=== PATIENT | female | born 1940 | race Caucasian/White ===

== ENCOUNTER 2019-06-24 09:15 | Emergency (ER) | payer OTHER ==
[~2019-06-24] VITALS: Ht 165.1 cm; Wt 59.0 kg
[~2019-06-24 09:15] MED LIST: ALEVE220 M1 PO; AMLODIPINE BESY10 MG PO; LOSARTAN POTAS100 MG PO
[2019-06-24] MEDS ORDERED: NORCO 5-325 TA1 EAC1 PO (11:18)
[2019-06-24] MEDS ORDERED: ROXICODONE5 M2 PO (11:24)
[2019-06-24 11:43] VITALS: BP 158/75
[2019-06-28] MEDS ORDERED: VITAMIN C1000 MG PO (10:14)
[2019-06-28] MEDS ORDERED: LIPITOR 20 MG T20 M1 PO (10:14)
[2019-06-28] MEDS ORDERED: GLUCOPHAGE1000 MG PO (10:14)
[2019-06-28] MEDS ORDERED: IBUPROFEN 200200 M1 PO (10:15)
[2019-06-28] MEDS ORDERED: VITAMIN D325 MC1 PO (10:15)
== END 2019-06-24 11:39 | disposition home or self-care (01) ==
LOC: ER 09:15
DX: S52.572A Other intraarticular fracture of lower end of left radius, initial encounter for closed fracture (principal); S52.692A Other fracture of lower end of left ulna, initial encounter for closed fracture; I10 Essential (primary) hypertension; E78.00 Pure hypercholesterolemia, unspecified; Z90.710 Acquired absence of both cervix and uterus; Z98.890 Other specified postprocedural states; Z88.5 Allergy status to narcotic agent; Z88.8 Allergy status to other drugs, medicaments and biological substances; W00.0XXA Fall on same level due to ice and snow, initial encounter; Y92.89 Other specified places as the place of occurrence of the external cause; Y93.89 Activity, other specified; Y99.8 Other external cause status

== ENCOUNTER → 2019-06-30 | Day surgery (SDC) | payer OTHER ==
[~2019-06-30] VITALS: Ht 165.1 cm; Wt 59.0 kg
[~2019-06-30] MED LIST changes: +GLUCOPHAGE1000 MG PO; +IBUPROFEN 200200 M1 PO; +LIPITOR 20 MG T20 M1 PO; +NORCO 5-325 TA1 EAC1 PO; +ROXICODONE5 M2 PO; +VITAMIN C1000 MG PO; +VITAMIN D325 MC1 PO
[2019-06-30 13:31] VITALS: BP 176/69
[2019-06-30 17:36] VITALS: BP 176/69
--- NOTE | 2019-07-07 14:28 | O ---
[facility] [place] [address] OPERATIVE REPORT Name: AVI LARSON Room #: REG [facility]..#: [id number] Admission: 06/30/19 Attend Phys: Aimee Benitez, Discharge: Date of : 42 Report #: [id number] THIS REPORT FOR: cc: Erickson Pittamn,Erickson Arias,Aimee Turk MD ~ CC: Erickson Benitez DATE OF SERVICE: 06/30/2019 PREOPERATIVE DIAGNOSES: 1. Left distal radius fracture, extra-articular. 2. Left distal ulnar fracture. POSTOPERATIVE DIAGNOSIS: 1. Left distal radius fracture, extra-articular. 2. Left distal ulnar fracture. PROCEDURE PERFORMED: 1. Open reduction and internal fixation of left distal radius fracture. 2. Open reduction and internal fixation of left distal ulnar fracture. SURGEON: Aimee Benitez MD ANESTHESIA: General mask anesthesia. ESTIMATED BLOOD LOSS: Minimal. TOURNIQUET TIME: 82 minutes. COMPLICATIONS: None. CONDITION: Stable. DISPOSITION: Recovery room. INDICATIONS: The patient is a 79-year-old female with the above-mentioned diagnosis. She elects for operative treatment. The risks, benefits, alternatives and complications were discussed including but not limited to infection, damage to vessels or nerves, nonunion, malunion, hardware failure, hardware rotation, stiffness. Informed consent was obtained. The correct extremity was identified and labeled by myself after verbal confirmation of the patient as well as visual confirmation and signed informed consent. DESCRIPTION OF PROCEDURE: The patient was brought back to the operating room [facility] [address] [place] [address] OPERATIVE REPORT Name: AVI LARSON Room #: REG [facility]..#: [id number] Admission: 06/30/19 Attend Phys: Aimee Benitez, Discharge: Date of : 42 Report #: [id number] and placed on a supine position. She received preoperative antibiotics. Tourniquet was placed over padding on the patient's left upper extremity. Left upper extremity was sterilely prepped and draped in the usual fashion. Final timeout was taken to verify correct patient, operative procedure, and site, all concurred. The arm was elevated, exsanguinated and tourniquet inflated. Next, first attention was placed to the distal radius. The volar approach was done to the distal radius over the FCR tendon. Dissection was carried down through subcutaneous tissue with tenotomy scissors. The FCR tendon sheath was identified and incised. The subsheath was incised. Volar contents were retracted ulnarly and the pronator was elevated off the distal radius. Fracture site was easily identified. A [place] elevator was placed into the fracture site. It was reduced well. Each narrow and standard volar distal radius Skeletal Dynamic locking plate was placed under the bone. Fluoroscopy was brought in and the narrow one was chosen, the standard was too wide. The plate was affixed to the bone in the two with 2 distal wires and then once it was found to be in the appropriate position, a cortical screw was placed in the gliding hole. Position was checked under fluoroscopy with AP, lateral and live fluoroscopic views including a lateral tilt view multiple times to ensure against intraarticular penetration or dorsal penetration. The distal screws had good fixation volar ulnarly and so a hook plate was not required. The proximal locking shaft screws were placed. These were all found to be in good position and the fracture was very stable. The wound was thoroughly irrigated. AP, lateral and lateral tilt views all showed good position of the fracture and hardware. The hardware was not in the joint. The wound was thoroughly irrigated. Pronator quadratus was loosely reapproximated over the plate with 2-0 Vicryl suture. The skin was closed with 4-0 nylon suture. Next attention was placed to the ulna. Approximately 7 cm incision was made over the subcutaneous border of the ulna. Dissection was carried down through subcutaneous tissue with tenotomy scissors. The periosteum was incised. The fracture was reduced quite easily and a distal ulna plate from Skeletal Dynamic set was applied to the bone. It was affixed to the bone with wires in the distal holes and then once this was found to be in good position in both AP and lateral planes as well as under direct visualization, a cortical screw was placed in the gliding hole. The remaining holes were drilled, measured and appropriate size screws were placed. Careful attention placed avoiding intra-articular penetration. The fracture was very stable and had nice compression. The wound was thoroughly irrigated. Skin was closed with 4-0 nylon suture. The subcutaneous tissue was infiltrated with approximately 5 mL of 0.25% Marcaine total. She was placed in a bulky dressing and a sugar tong splint with the forearm in neutral. The DRUJ had previously been assessed. It was stable. All fingers were pink with brisk capillary refill at the completion of case after deflation of tourniquet. All sponge and needle counts were [facility] [address] [place] [address] OPERATIVE REPORT Name: AVI LARSON [id number] Admission: 06/30/19 Attend Phys: Aimee Benitez, Discharge: Date of : 42 Report #: [id number]. The patient was transferred to postoperative recovery room in stable condition. <ELECTRONICALLY SIGNED> By: Aimee Benitez MD 07/07/19 1428 1238 1302 Aimee Benitez MD /nt
--- NOTE | 2019-07-15 15:29 | EKG ---
[facility] [place] [address] ELECTROCARDIOGRAM REPORT Name: AVI LARSON Room #: REG [facility] M..#: [id number] Admission: 06/30/19 Attend Phys: Aimee Benitez, Discharge: Date of : 42 Report #: [id number] THIS REPORT FOR: cc: Erickson Pittman Steven F. DO Couchonnal, Luis F. MD ~ THIS REPORT FOR: //name// [facility] Test Date: 2019-06-30 Test Time: 12:54:17 Pat Name: AVI LARSON Department: Room: Gender: F Director Of Database Marketing: EVELINA : 1940 Requested By: Aimee Benitez Order Number: [id number] MD: Bassam Weiss Measurements Intervals [place] Rate: 90 P: 47 MA: 153 QRS: -53 QRSD: 106 T: 62 QT: 399 QTc: 489 Interpretive Statements Sinus rhythm Left anterior fascicular block Left ventricular hypertrophy Anterior Q waves, possibly due to LVH Compared to ECG 09/25/2003 14:25:51 Left ventricular hypertrophy now present Q waves now present ST (T wave) deviation no longer present Electronically Signed On 06-30-2019 16:31:03 BIAS BINDING FOLDER by Bassam Weiss [email or web address] <ELECTRONICALLY SIGNED> By: Bassam Weiss MD 06/30/19 1631 1254 1254 Bassam Weiss MD /EPI
== END | disposition home or self-care (01) ==
LOC: OR 08:10
DX: S52.502A Unspecified fracture of the lower end of left radius, initial encounter for closed fracture (principal); S52.602A Unspecified fracture of lower end of left ulna, initial encounter for closed fracture; I10 Essential (primary) hypertension; E11.9 Type 2 diabetes mellitus without complications; E78.00 Pure hypercholesterolemia, unspecified; Z98.890 Other specified postprocedural states; Z79.899 Other long term (current) drug therapy; Z90.710 Acquired absence of both cervix and uterus; Z88.8 Allergy status to other drugs, medicaments and biological substances; X58.XXXA Exposure to other specified factors, initial encounter; Y93.89 Activity, other specified; Y92.89 Other specified places as the place of occurrence of the external cause; Y99.8 Other external cause status
CPT/HCPCS: 50010; 50101; 50386; 56526; 57006; 57091; 57178; 57431; 57432; 57433; 57434; 57435; 57436; 57437; 57438; 57439; 57440; 57441; 57442; 57443; 62110; 62900; 70005

== ENCOUNTER 2021-03-31 17:33 | Emergency (ER) | payer OTHER ==
[~2021-03-31] VITALS: Ht 165.1 cm; Wt 61.2 kg
[2021-03-31 18:45] LABS: ABSOLUTE NEUTROPHILS 5.3 thou/uL (1.4-8.2); BASOPHILS 0.4 % (0.0-2.0); EOSINOPHILS 0.1 % (0.0-3.0); HEMOGLOBIN 14.2 gm/dL (12.0-15.0); MCH 30.3 pg (26.0-34.0); MCHC 33.9 g/dL (28.0-37.0); MCV 89.5 fL (80.0-100.0); MONOCYTES 11.8 % (1.0-8.0); PLATELET COUNT 136 thou/uL (150-400); POLYS 73.7 % (36.0-66.0); RBC 4.69 mil/uL (4.20-5.00); RDW 12.9 % (10.5-14.5); WBC 7.2 thou/uL (4.0-11.0)
[2021-03-31 18:48] LABS: URINE BILIRUBIN NEGATIVE (Negative); URINE BLOOD NEGATIVE (Negative); URINE CLARITY CLEAR; URINE COLOR YELLOW; URINE GLUCOSE-RANDOM* NEGATIVE (Negative); URINE KETONES NEGATIVE (Negative); URINE LEUKOCYTES-REFLEX NEGATIVE (Negative); URINE NITRITE-REFLEX NEGATIVE (Negative); URINE PROTEIN (DIPSTICK) NEGATIVE (Negative); URINE SPECIFIC GRAVITY <= 1.005 (1.005-1.035); URINE UROBILINOGEN 0.2 E.U./dl (0.2-1.0)
[2021-03-31 19:10] LABS: CALCIUM 9.1 mg/dL (8.5-10.1); CREATININE 0.7 mg/dL (0.6-1.0); POTASSIUM 3.5 mmol/L (3.5-5.1)
[2021-03-31 19:41] VITALS: BP 163/58
--- NOTE | 2021-04-01 07:40 | EKG ---
[facility] [facility] [place] [address] ELECTROCARDIOGRAM REPORT Name: AVI LARSON [id number] Admission: 03/31/21 Attend Phys: Discharge: 03/31/21 Date of : 42 Report #: [id number] [facility] ED Test Date: 2021-03-31 Test Time: 17:46:53 Pat Name: AVI LARSON Department: Room: Gender: F Senior Consumer Insights Consultant: HAILEY : 1940 Requested By: Ravi Angeles Order Number: [id number] MD: Allen Adam Measurements Intervals [place] Rate: 91 P: 42 MT: 157 QRS: -57 QRSD: 105 T: 62 QT: 393 QTc: 484 Interpretive Statements Sinus rhythm Ventricular premature complex Left anterior fascicular block Left ventricular hypertrophy Anterior Q waves, possibly due to LVH Compared to ECG 06/30/2019 12:54:17 Ventricular premature complex(es) now present Electronically Signed On 04-01-2021 7:40:25 DEPUTY CHIEF SHERIFF by Allen Adam [email or web address] <ELECTRONICALLY SIGNED> By: Allen Adam MD, [facility] 04/01/21 0740 1746 1746 Allen Adam MD, [facility] /EPI
== END 2021-03-31 19:45 | disposition home or self-care (01) ==
LOC: ER 17:33
PROVIDERS: Student in an Organized Health Care Education/Training Program
DX: U07.1 COVID-19 (principal); E78.00 Pure hypercholesterolemia, unspecified; I10 Essential (primary) hypertension; E11.9 Type 2 diabetes mellitus without complications; Z79.899 Other long term (current) drug therapy; Z90.710 Acquired absence of both cervix and uterus; Z88.5 Allergy status to narcotic agent

== ENCOUNTER 2021-04-09 13:10 | Inpatient (IN) | payer OTHER ==
[~2021-04-09] VITALS: Ht 165.1 cm; Wt 59.4 kg
[2021-04-09 13:55] VITALS: BP 153/90
[2021-04-09 14:30] LABS: ABSOLUTE NEUTROPHILS 7.9 thou/uL (1.4-8.2); BASOPHILS 0.5 % (0.0-2.0); HEMATOCRIT 37.9 % (37.0-47.0); HEMOGLOBIN 13.3 gm/dL (12.0-15.0); LYMPHOCYTES 5.7 % (24.0-44.0); MCH 30.8 pg (26.0-34.0); MCV 87.8 fL (80.0-100.0); MONOCYTES 9.3 % (1.0-8.0); PLATELET COUNT 341 thou/uL (150-400); POLYS 84.5 % (36.0-66.0); RBC 4.32 mil/uL (4.20-5.00); RDW 12.6 % (10.5-14.5); WBC 9.4 thou/uL (4.0-11.0)
[2021-04-09 14:43] LABS: CALCIUM 9.2 mg/dL (8.5-10.1); CREATININE 0.9 mg/dL (0.6-1.0); POTASSIUM 3.3 mmol/L (3.5-5.1)
[2021-04-09 17:02] VITALS: BP 130/57
--- NOTE | 2021-04-09 18:23 | NUR ---
ADMISSION NOTE: PT ADMITTED APPROX 1520. PT ALERT AND ORIENTED X 4. NO COMPLAINTS OF PAIN. PT ON 4 L NC CURRENTLY. DESATS WITH MOVEMENT. TELE IN PLACE. CONSENTS SIGNED AND IN CHART. PT USING BSC X 1 ASSIST. ORIENTED PT TO ROOM, BEDSIDE TABLE AND CALL LIGHT WITHIN REACH. PT ON ENHANCED PRECAUTIONS DUE TO COVID+. CONSULTS CALLED AND NO NEEDS AT THE MOMENT. WILL TAKE TO CT SCAN BEFORE END OF SHIFT. WILL CONTINUE TO MONITOR.
[2021-04-09 19:58] VITALS: BP 115/82
--- NOTE | 2021-04-09 23:08 | NUR ---
PT RETURNED FROM CT. PT REPORTED WANTING TO RETIRE TO SLEEP, STATING SHE WAS EXHAUSTED FROM THE DAY. IVF INTACT. LUNGS WITH CRACKLES. O2 PER NC. STEADY GAIT, SBA. BED ALARM ON. PT DECLINED HS INSULIN SCALE, REPORTED MISSED AM DOSE OF METFORMIN, FEELS HER SUGARS ARE CONTROLLED ON PO MEDS.
[2021-04-09 23:48] VITALS: BP 140/62
[2021-04-10 04:22] VITALS: BP 149/69
--- NOTE | 2021-04-10 05:47 | NUR ---
PTS PCR COVID TEST RETURNED POSITIVE. FOLLOW UP SPECIALIST UPDATED. PROVIDER UPDATED.
[2021-04-10 06:41] LABS: HEMATOCRIT 36.8 % (37.0-47.0); HEMOGLOBIN 12.6 gm/dL (12.0-15.0); MCH 30.5 pg (26.0-34.0); MCHC 34.3 g/dL (28.0-37.0); MCV 89.1 fL (80.0-100.0); RBC 4.13 mil/uL (4.20-5.00); RDW 12.8 % (10.5-14.5); WBC 7.3 thou/uL (4.0-11.0)
[2021-04-10 07:10] LABS: ALBUMIN 2.3 g/dL (3.4-5.0); CALCIUM 9.2 mg/dL (8.5-10.1); CREATININE 0.6 mg/dL (0.6-1.0); TOTAL BILIRUBIN 0.7 mg/dL (0.2-1.0); TOTAL PROTEIN 7.1 g/dL (6.4-8.2)
--- NOTE | 2021-04-10 07:18 | EKG ---
[address] [place] [address] ELECTROCARDIOGRAM REPORT Name: AVI LARSON Room #: 352- ADM IN M.R.#: [id number] Admission: 04/09/21 Attend Phys: Elena Borges MD Discharge: Date of : 41 Report #: [id number] [facility] ED Test Date: 2021-04-09 Test Time: 14:30:19 Pat Name: AVI LARSON Department: Room: [facility] Gender: F Cement Sack Breaker: JACLYN : 1940 Requested By: William Edwards Order Number: [id number] MD: Allen Adam Measurements Intervals [place] Rate: 97 P: 45 [place]: 175 QRS: -49 QRSD: 104 T: 45 QT: 375 QTc: 477 Interpretive Statements Sinus rhythm Ventricular premature complex Left anterior fascicular block Abnormal R-wave progression, late transition Left ventricular hypertrophy Compared to ECG 03/31/2021 17:46:53 Q waves no longer present Electronically Signed On 04-10-2021 7:18:13 SCRAP DROP OPERATOR by Allen Adam [email or web address] <ELECTRONICALLY SIGNED> By: Allen Adam MD, FACC 04/10/21 0718 1430 1430 Allen Adam MD, FAC /EPI
[2021-04-10 08:00] VITALS: BP 150/69
[2021-04-10 11:26] VITALS: BP 121/55
[2021-04-10 15:15] VITALS: BP 140/91
--- NOTE | 2021-04-10 15:58 | NUR ---
INITIAL ASSESSMENT: SW reviewed chart and spoke with nursing and attending physician. Pt was admitted from home due to COVID. Pt placed in Enhanced Isolation. Pt has not received a COVID vaccination. Pt with hx of HTN/DM. Pt is afebrile and on 6L of O2. Pt is on IV abx. ID consulted. SW placed call to pt's room. No answer. Per chart, pt is alert/orientated and lives at home with her grandson. Prior to admission, pt was independent with ADLs. No use of DME. There are 12 steps to enter the home from the garage. Pt's PCP is listed as Dr. Pittman. Therapy evals have been ordered. SW to follow up with pt to discuss discharge planning.
[2021-04-10 19:40] VITALS: BP 163/69
--- NOTE | 2021-04-10 19:44 | NUR ---
RN ASSUMED PT'S CARE AT 0700-1900PM, PT IS A&OX4, PT IS ON 4-6L/MIN/NC, PT STILL HAS SOB WITH ACTIVITIES, PT IS CONTINUING IV ABX AND TREAT CIVID MEDICATIONS, PT 'S VS ARE STABLE AT DAY SHIFT.
--- NOTE | 2021-04-11 03:15 | NUR ---
PT IS SLOWLY PROGRESSING TOWARD GOAL OF DISCHARGE HOME. PT IS A&OX4 WITH SOME ANXIETY NOTED, BUT IS PLEASANT AND COOPERATIVE. PT ON 6L/NC AND MAINTAINING O2 SATS >93%. PT UP TO BSC WITH SBA, VOIDING WITHOUT DIFFICULTY. PT HAD COMPLAINT OF EYE IRRITATION, PROVIDED WARM COMPRESS AND TYLENOL WITH GOOD RELIEF. CONTINUES ON ISOLATION FOR COVID-19. NON-PRODUCTIVE COUGH AND FATIGUE NOTED. SR/SB ON TEACHER ASSOCIATE. WILL CONTINUE TO OBSERVE FOR CHANGES.
[2021-04-11 03:55] VITALS: BP 151/65
[2021-04-11 07:28] VITALS: BP 164/77
--- NOTE | 2021-04-11 11:19 | HC ---
[facility] [place] [address] CONSULTATION Name: AVI LARSON Room #: 352-P ADM IN M.R.#: [id number] Admission: 04/09/21 Attend Phys: Elena Borges MD Discharge: Date of : 42 Report #: [id number] THIS REPORT FOR: cc: Erickson Pittman,Omkar Briceno MD ~ DATE OF SERVICE: 04/10/2021 INFECTIOUS DISEASE CONSULTATION ATTENDING PHYSICIAN: Dr. oBrges. REASON FOR EVALUATION: Recent COVID-19 infection, now with multifocal pneumonitis and respiratory failure. HISTORY OF PRESENT ILLNESS: Chart reviewed. The patient is examined. This is an 81-year-old woman with history of diabetes mellitus who has been feeling progressively weak, worn down, lack of energy, poor appetite. She was found to be hypoxemic on room air, did improve with nasal cannula supplemental oxygen. Apparently had been COVID positive by testing 2 weeks ago. Initial chest x-ray noted interstitial infiltrates. Coronavirus testing for antigen was negative; however, followup PCR was positive. Procalcitonin 0.05. Lactic acid of 2.5. D-dimer 0.[address] of the chest, which showed no evidence of pulmonary embolus, although did confirm severe multifocal pneumonia, so empirically started on combination therapy with ceftriaxone and azithromycin. She notes clinically has improved, although has increased oxygen requirements at 6 liters. Maintain saturations in the low 90s. ALLERGIES: LISTED HYDROCODONE, MEPERIDINE. CURRENT MEDICATIONS: Include enoxaparin, dexamethasone, azithromycin, ceftriaxone, atorvastatin, amlodipine, p.r.n. acetaminophen. PAST MEDICAL HISTORY: As described above, diabetes mellitus, hypertension, bilateral cataracts, elevated cholesterol. SOCIAL HISTORY: Nonsmoker, no ethanol, no illicit drug use. FAMILY HISTORY: Noncontributory. REVIEW OF SYSTEMS: Otherwise, denies any significant fevers, chills. Appetite has been diminished. PHYSICAL EXAMINATION: GENERAL: She appears ill, not overtly toxic. She is lucid, somewhat undernourished, mild to moderate distress. [facility] [address] [place] [address] CONSULTATION Name: AVI LARSON Room #: 352-P [facility] IN [facility]#: [id number] Admission: 04/09/21 Attend Phys: Elena Borges MD Discharge: Date of : 42 Report #: [id number] VITAL SIGNS: Temperature 98.3, pulse 80, respirations 20, blood pressure 140/91. SKIN: Warm, dry, no rashes. HEENT: Nasal cannula in place. Normocephalic. Extraocular muscles intact. NECK: Supple. LUNGS: Bilateral few scattered coarse breath sounds. HEART: Regular, soft systolic murmur. ABDOMEN: Mildly distended, firm, nontender. EXTREMITIES: No cyanosis. GENITOURINARY AND RECTAL: Deferred. LABORATORY DATA: Blood sugars have been consistently elevated, most recently in the 170s. Electrolytes: Sodium 137, potassium 4, chloride 100, bicarbonate is 29, anion gap of 8, BUN and creatinine 10 and 0.6, AST borderline elevated at 41, ALT of 47. Albumin 2.3, total protein 7.1. CBC: White count is 7.3, H and H 12.6 and 36.8, platelets of 365, positive coronavirus-19 PCR. IMAGING: As described above. ASSESSMENT AND PLAN: Recent COVID-19 infection, concern about secondary bacterial complication, specifically pneumonitis. Reportedly, has been 2 weeks outside of the window to treatment with remdesivir. We will continue corticosteroids, empiric antibacterials as well. We will check some additional diagnostic tests to see if we can pinpoint any organism. At this point, she remains tenuous although she notes she does feel better than admission. Continue to monitor expectantly, at risk for clinical deterioration for additional complications. <ELECTRONICALLY SIGNED> By: Omkar Grissom MD 04/11/21 1119 1441 1927 Omkar Grissom MD /nt
[2021-04-11 11:26] VITALS: BP 155/80
--- NOTE | 2021-04-11 12:01 | NUR ---
GORDON reviewed chart and spoke with nursing and attending physician. Pt remains in Enhanced Isolation due to COVID. Pt is afebrile and requiring 6-7L of O2. Pt is on IV abx and IV steroids. GORDON discussed case with [facility] rehabilitation physician. Pt was evaluated and has been accepted to [facility] when pt is medically stable. Pt will remain on 3W during rehab stay if not out of Enhanced Isolation. GORDON spoke with pt via phone. Discussed option for rehab at the hospital before returning home. Pt is agreeable with plan and states she needs to get stronger before going back home. SW is following to assist as needed with discharge planning.
[2021-04-11 15:11] VITALS: BP 132/49
--- NOTE | 2021-04-11 16:28 | NUR ---
PT ALERT AND ORIENTED X 4. PT ANXIOUS THROUGHTOUT SHIFT, ASKING ABOUT HER CONDITION AND ABOUT MEDICATIONS. ATTEMPTED TO TITRATE PT 02 DOWN, BUT NOT TOLERATED, SO CURRENTLY ON 6L NC. NO COMPLAINTS OF PAIN. WILL CONTINUE TO MONITOR.
[2021-04-11 19:33] VITALS: BP 141/52
--- NOTE | 2021-04-12 03:11 | NUR ---
PT IS SLOWLY PROGRESSING TOWARD GOAL OF DISCHARGE. PT IS A&OX4 AND ABLE TO COMMUNICATE ALL WANTS AND NEEDS TO STAFF. SHE HAS BEEN STABLE ON 5L/NC THIS SHIFT, DOES HAVE SOME SOA WITH EXERTION. SHE STATES SHE FEELS LIKE SHE IS "GETTING BETTER." UP WITH SBA TO BSC. CONTINUES ON IV ANTIBIOTICS. VITAL SIGNS STABLE. WILL CONTINUE TO OBSERVE FOR CHANGES
[2021-04-12 05:17] VITALS: BP 146/59
[2021-04-12 07:35] VITALS: BP 159/65
[2021-04-12 11:23] VITALS: BP 145/55
--- NOTE | 2021-04-12 14:29 | NUR ---
GORDON reviewed chart and spoke with nursing and attending physician. Pt remains in Enhanced Isolation due to COVID. Pt is afebrile and on 4L of O2. Pt is on IV abx and IV steroids. No weekend discharge planned. Pt has been accepted to go to [facility]. Pt would be ready to be rehab status on Thursday. SW spoke with pt via phone to discuss plan. Pt states that she is agreeable with plan, but she needs to be home by next Thursday, 04/17. Pt states she needs to be able to pay her bills and do some other things. SW explained that a short rehab stay would be 5-7 days at least. Pt states that she may be ready to discharge home on Thursday. SW explained that pt's status will be re-evaluated on Thursday and then determine discharge plan. Pt verbalized understanding. SW updated [facility] clinical rehab liaison. Therapy requested to see pt over the weekend. GORDON is following to assist as needed with discharge planning.
[2021-04-12 15:30] VITALS: BP 133/54
[2021-04-12 19:20] VITALS: BP 145/51
--- NOTE | 2021-04-12 19:31 | NUR ---
RN ASSUMED PT'S CARE AT 0700-1900PM, PT IS A&OX4, PT IS ON O2 4L/MIN/NC, PT HAS SOB WITH ACTIVITIES, PT IS CONTINUING IV ABX AND COVID MEDICATIONS, PT DENIES PAIN AT DAY SHIFT.
--- NOTE | 2021-04-13 04:02 | NUR ---
PT ALERT & ORIENTED X 4. CURRENTLY ON 4L O2 NC. VSS AFEBRILE. SR ON TELE MONITOR. NO C/O OF PAIN, NAUSEA/VOMITTING OVERNIGHT. PT CURRENTLY ON IV ABX. PT UP AD SANNA. PT PROGRESSING TOWARDS POC GOALS. WILL CONTINUE TO MONITOR.
[2021-04-13 04:26] VITALS: BP 144/65
[2021-04-13 06:18] LABS: HEMATOCRIT 36.3 % (37.0-47.0); HEMOGLOBIN 12.2 gm/dL (12.0-15.0); MCHC 33.7 g/dL (28.0-37.0); MCV 88.9 fL (80.0-100.0); RBC 4.08 mil/uL (4.20-5.00); RDW 12.7 % (10.5-14.5)
[2021-04-13 06:44] LABS: CALCIUM 8.9 mg/dL (8.5-10.1); CREATININE 0.7 mg/dL (0.6-1.0); POTASSIUM 3.6 mmol/L (3.5-5.1)
[2021-04-13 07:43] VITALS: BP 152/56
[2021-04-13 11:30] VITALS: BP 137/50
[2021-04-13 15:40] VITALS: BP 141/50
[2021-04-13 20:29] VITALS: BP 144/62
[2021-04-14 04:23] VITALS: BP 121/76
[2021-04-14 07:44] VITALS: BP 140/75
[2021-04-14 11:23] VITALS: BP 133/58
[2021-04-14 16:08] VITALS: BP 132/71
[2021-04-14 18:58] VITALS: BP 124/97
--- NOTE | 2021-04-14 19:37 | NUR ---
RN TOOK CARE PT'S AT 0700-1900PM,PT IS A&OX4, PT IS ON O2 3L/IESHA/NC, PT'S VS AND O2SAT ARE STABLE, PT STILL HAS SOB WITH ACTIVITIES.
--- NOTE | 2021-04-14 23:45 | NUR ---
PROGRESS PT A/O X4. UP AD SANNA. TELEMETRY INTACT READING SR WITH RATES IN 80'S. LUNGS CLEAR BUT DIMINISHED ON 2 LITERS O2 VIA NC SATS IN THE MID 90'S, DENIES SOB AT THIS TIME. PLAN IS TO DC HOME WITH O2 AND HH IN THE AM AFTER OXIMETRY TEST.
[2021-04-15 04:41] VITALS: BP 127/53
[2021-04-15] MEDS ORDERED: AMOX TR-K CLV1 EAC4 PO (12:14)
[2021-04-15] MEDS ORDERED: JANUVIA25 MG PO (12:14)
[2021-04-15] MEDS ORDERED: PEPCID20 MG PO (12:14)
[2021-04-15] MEDS ORDERED: ACEROLA C500 MG PO (12:14)
[2021-04-15] MEDS ORDERED: DEXAMETHASONE 22 MG PO (12:14)
[2021-04-15] MEDS ORDERED: HUMALOG100 UNIT/1 SUBQ (12:14)
[2021-04-15] MEDS ORDERED: ZINC SULFATE50 MG PO (12:14)
[2021-04-15] MEDS ORDERED: OTHER MISCELL (12:14)
[2021-04-15 12:28] VITALS: BP 144/95
[2021-04-15 13:07] VITALS: BP 144/95
--- NOTE | 2021-04-15 13:28 | NUR ---
DISCHARGE NOTE: GORDON reviewed chart and spoke with nursing and attending physician. Pt remains in Enhanced Isolation due to COVID. Pt is medically stable to discharge home today. Rest/exercise oximetry completed today. Pt requires 4L of O2 with activity. Discharge orders written for HH. GORDON spoke with pt via phone to discuss discharge plan. Pt is aware and in agreement with discharge. Options for HH and DME providers discussed. No preference voiced. GORDON verified pt's home address and phone number. GORDON notified [facility] liaison of new referral. [facility] services is able to accept pt on service. GORDON faxed home O2 referral, testing and script to [facility]. Confirmed info was received. Notified [facility] liaison of new referral. Portable O2 tank delivered to [facility] nurses tation at 1320. Pt's nurse notified. [facility] Pt's family to provide transportation home. GORDON updated [facility] home care liaison. No additional SW needs identified at this time. GORDON is available to assist should needs arise.
--- NOTE | 2021-04-15 19:59 | NUR ---
RN ASSUMED PT'S CARE AT 0700-1500PM, PT IS A&OX4, PT'S SOB HAS IMPROVED, PT'S VS ARE STABLE, RN RECEIVED ORDER TO DC PT TO HOME WITH HOME HEALTH, PT AND PT'S SON ( ON PHONE ) UNDERSTAND DC TEACHING WELL , PT HAS O2 TANK WITH HER TO HOME , PT'S SON TURNING MACHINE SET UP OPERATOR PT TO HOME AT 1500PM.
== END 2021-04-15 15:22 | disposition home health service (06) | DRG 177 ==
LOC: ER 13:10 → 3W 15:37 → EROBS 15:37 → 3W 17:19
PROVIDERS: Emergency Medicine; ADMIT Hospitalist; ATTEND Hospitalist
PROC: 5A0935A Assistance with Respiratory Ventilation, Less than 24 Consecutive Hours, High Flow/Velocity Cannula (ICD-10-PCS; principal; 2021-04-13)
DX: U07.1 COVID-19 (principal); J12.82 Pneumonia due to coronavirus disease 2019; J80 Acute respiratory distress syndrome; E87.1 Hypo-osmolality and hyponatremia; I10 Essential (primary) hypertension; E78.00 Pure hypercholesterolemia, unspecified; E11.9 Type 2 diabetes mellitus without complications; E78.5 Hyperlipidemia, unspecified; E87.6 Hypokalemia; R53.81 Other malaise; M19.90 Unspecified osteoarthritis, unspecified site; Z90.710 Acquired absence of both cervix and uterus; Z98.42 Cataract extraction status, left eye; Z98.41 Cataract extraction status, right eye; Z88.6 Allergy status to analgesic agent; Z88.8 Allergy status to other drugs, medicaments and biological substances; Z82.49 Family history of ischemic heart disease and other diseases of the circulatory system; Z82.3 Family history of stroke; Z28.21 Immunization not carried out because of patient refusal
CPT/HCPCS: 10879